=== PATIENT | female | born 2000 | race Caucasian/White ===

== ENCOUNTER → 2023-08-18 10:18 | Outpatient (REF) | payer BC, OTHER, SELFPAY | LOC: WDC 10:18 | PROVIDERS: ATTENDING PHYSICIAN Internal Medicine | DX: R22.31 Localized swelling, mass and lump, right upper limb (principal); N63.31 Unspecified lump in axillary tail of the right breast | CPT/HCPCS: 76642 ==

== ENCOUNTER 2024-06-12 07:35 | Emergency (ER) | payer BC, SELFPAY ==
[2024-06-12 07:43] VITALS: BP 141/88
[2024-06-12 08:06] LABS: % Basophils 0.4 % (0-2); % Eosinophils 0.4 % (0-6); % Immature Granulocytes 0.3 % (0-0.5); % Lymphocytes 4.8 % (20.5-51.1); % Monocytes 4.3 % (1.7-9.3); % Neutrophils 89.8 % (42.2-75.2); Absolute Basophils 0.1 10^3/uL (0-0.2); Absolute Lymphocytes 0.5 10^3/uL (1.2-3.4); Absolute Monocytes 0.5 10^3/uL (0.1-0.6); Absolute Neutrophils 10.1 10^3/uL (1.4-6.5); Hematocrit 35.6 % (37.0-47.0); Hemoglobin 11.8 g/dL (12.0-16.0); Mean Corp Hgb Conc. 33.1 g/dL (33.0-37.0); Mean Corpuscular Hgb 28.1 pg (27.0-31.0); Mean Corpuscular Volume 84.8 fL (81.0-99.0); Mean Platelet Volume 11.4 fL (7.4-10.4); Nucleated Red Blood Cells % 0 %; Platelet Count 216 10^3/uL (130-400); Red Cell Dist. Width 15.3 % (11.5-14.5); White Blood Cell Count 11.2 10^3/uL (4.8-10.8)
[2024-06-12 08:14] LABS: HCG, Serum Qualitative Screen Negative
[2024-06-12 08:17] LABS: ALT (SGPT) 27 U/L (0-35); AST (SGOT) 34 U/L (14-36); Albumin 4.6 g/dl (3.5-5.0); Alkaline Phosphatase 50 U/L (38-126); Blood Urea Nitrogen 11 mg/dl (7-17); Calcium 9.2 mg/dl (8.4-10.2); Carbon Dioxide 25 mmol/L (22-30); Chloride 103 mmol/L (98-107); Glucose 144 mg/dl (70-99); Potassium 3.8 mmol/L (3.5-5.1); Sodium 139 mmol/L (135-145); Total Bilirubin 1.1 mg/dl (0.2-1.3); eGFR > 60.00
[2024-06-12] MEDS: TORADOL 15 MG IV ×2 (10:23→19:03)
[2024-06-12] MEDS: ZOFRAN 4 MG IV ×2 (10:28→13:23)
[2024-06-12 10:30] VITALS: BMI 20.8
[2024-06-12 11:41] VITALS: BP 120/85
[2024-06-12] MEDS: NSS 1000 IV (12:00)
[2024-06-12 12:20] LABS: Urine Albumin 1+ (Neg - Trace); Urine Bilirubin Negative (Negative); Urine Character Clear (Clear); Urine Color Yellow; Urine Glucose 4+ (Negative); Urine Leukocyte Negative (Negative); Urine Nitrite Negative (Negative); Urine Occult Blood 2+ (Negative); Urine Specific Gravity 1.015 (<1.030); Urine Urobilinogen 1+ (Neg - 1+)
[2024-06-12 12:25] LABS: Urine Ketone 3+ (Negative)
[2024-06-12 12:40] LABS: Urine Mucus Many
[2024-06-12 12:41] LABS: Urine Amorphous Seen; Urine Squamous Cell >30 /LPF (Few); Urine Urothelial Cell 16-20 /LPF (FEW)
[2024-06-12 12:42] LABS: Urine Red Blood Cell 0-2 /HPF (0-2)
--- NOTE | 2024-06-12 12:50 | ED.GENMED ---
Addendum entered and electronically signed by Sankte Moulton MD 06/12/24 18:50:
Lipase normal, viral swabs normal. CT still pending but on clinical reassessment patient is actually requesting to leave. She does not wish to stay for CT scan and does not feel she needs to stay in hospital. She says that she thinks this is just
a virus and I tend to agree. I did explain my thought process and concerns that with the degree of pain she was reporting earlier she should be evaluated with a CT scan but she is not wish to stay for this at this point and is requesting to leave
the hospital. She does have decisional capacity. Reassuringly she has been in the emergency room for about 10 hours and has had reassuring vital signs and on clinical reassessment of her abdomen it is soft and nontender. Will discharge in keeping
with her wishes, she assured me that she will return if her symptoms are worsening.
Addendum entered and electronically signed by Sanket Moulton MD 06/12/24 15:15:
UPDATE (Sanket Moulton MD)
I have seen and evaluated the patient after signout and reviewed all labs and imaging.
Focused HPI: 23-year-old female with history of hypertension who presented to the emergency room with nausea, vomiting, diarrhea as well as some low back pain. She presented via EMS. She says these have been ongoing since last night and that she
was up all night vomiting. She says she has some mild aching in her abdomen but mainly pain in her low back. No fever reported. No urinary symptoms reported. Denies similar symptoms in the past.
Physical exam: Patient is lying in bed appears mildly uncomfortable holding emesis bag. Vital signs are all normal on my assessment. Abdomen soft and minimally tender epigastrium.
Medical Decision Makin-year-old female here with nausea, vomiting, diarrhea as well as low back pain. Symptoms suspected to be related to enteritis initially, labs sent off including a CBC which showed marginal leukocytosis at 11.2, CMP no
clinically significant abnormalities. Her hCG is negative. Her urinalysis was positive for ketones with some blood but no signs of acute infection. She feels symptoms are worsening despite treatment here in the emergency room with Tylenol,
Toradol, Zofran x 2, Reglan/Benadryl, fluids. Will add lipase with worsening back pain and nausea/vomiting. Will check CT of the abdomen pelvis. Swab for COVID and flu. Reassess after the above�anticipate admission if no improvement despite
multiple rounds of parenteral medications.
Original Note:
History of Present Illness
General
Chief Complaint: Abdominal Symptoms
Source: patient and ambulance crew
Exam Limitations: none
Time Seen by Provider: 06/12/24 10:05
Nursing documentation reviewed up to this point in time: agreed with
History of Present Illness
History of Present Illness:
23-year-old female presents emergency department due to nausea vomiting diarrhea and low back pain. She was vomiting, and called EMS. EMS gave 4 mg Zofran en route. This did help her nausea.
Past History
Past History
ED Past Medical History: HTN, Psychiatric (Anxiety/Depression) and Other (Chronic kidney disease)
ED Past Surgical History: Tonsilectomy (And adenoids) and Other (Tear duct surgery)
Social History
Tobacco: Smoker
Alcohol: None
Drug: None
Review of Systems
Review of Systems
Allergies reviewed?: Yes
All Other Systems: Not applicable
Constitutional: Reports no symptoms
EENT: Reports no symptoms
Respiratory: Reports no symptoms
Cardiac: Reports no symptoms
ABD/GI: Reports nausea and vomiting
: Reports no symptoms
Musculoskeletal: Reports back pain
Skin: Reports no symptoms
Neurological: Reports no symptoms
Endocrine: Reports no symptoms
Hematologic/Lymphatic: Reports no symptoms
Psychiatric: Reports no symptoms
Phy Exam
Physical Exam
Physical Exam:
Physical Exam
General: no apparent distress, not acutely ill
Neck: supple. no meningeal signs. normal posterior pharynx
Heart: s1/s2 regular rate and rhythm, no murmur. equal radial
pulses.
HEENT: Pupils equal round reactive to light, EOMI
Lungs: no acute respiratory distress. clear bilaterally
Abdomen: normal bowel sounds. not tender. no CVAT
back: mid left paraspinal muscle tenderness
Neuro: alert and oriented. no focal neurological deficits cranial nerves II through XII intact
Skin: no rash
Psychiatric: well kept. interactive and cooperative
Extremities: no edema. no calf tenderness. negative homans. good distal pulses
Course
Orders/Labs/Results
Orders:
Orders
06/12/24 07:49
Test Result ONCE
06/12/24 07:53
Complete Blood Count/With Diff Urgent
Comprehensive Metabolic Panel Urgent
HCG, Serum Qualitative Screen Urgent
06/12/24 10:17
Ketorolac [Toradol] 15 mg IV NOW STA
Ondansetron Injectable [Zofran] 4 mg IV NOW STA
06/12/24 11:16
Urinalysis Reflex To Culture Urgent
Date Specimen was Collected: 06/12/24
Time Specimen was Collected: 10:45
Urine Microscopic Reflex Cult Urgent
06/12/24 11:34
0.9% Sodium Chloride 1000 ml [Nss] 1,000 ml IV BOLUS
06/12/24 13:11
Acetaminophen [Tylenol] 650 mg PO NOW STA
Ondansetron Injectable [Zofran] 4 mg IV NOW STA
Abnormal Lab Results
06/12/24 06/12/24
07:53 11:16
WBC 11.2 H 10^3/uL
(4.8-10.8)
Hgb 11.8 L g/dL
(12.0-16.0)
Hct 35.6 L %
(37.0-47.0)
RDW 15.3 H %
(11.5-14.5)
MPV 11.4 H fL
(7.4-10.4)
Absolute Neuts (auto) 10.1 H 10^3/uL
(1.4-6.5)
Absolute Lymphs (auto) 0.5 L 10^3/uL
(1.2-3.4)
Neutrophils % 89.8 H %
(42.2-75.2)
Lymphocytes % 4.8 L %
(20.5-51.1)
Glucose 144 H mg/dl
(70-99)
Urine Ketones 3+ A
(Negative)
Ur Occult Blood Reflex 2+ A
(Negative)
Urine Glucose 4+ A
(Negative)
Urine Albumin (Reflex) 1+ A
(Neg - Trace)
06/12/24 07:53
06/12/24 07:53
Vital Signs
Initial and Last Documented VS:
Initial Vital Signs
Temp Pulse Resp BP Pulse Ox
99.3 F 81 18 141/88 98
06/12/24 07:43 06/12/24 07:43 06/12/24 07:43 06/12/24 07:43 06/12/24 07:43
Last Documented Vital Signs
Temp Pulse Resp BP Pulse Ox
98.8 F 78 18 120/85 95
06/12/24 11:41 06/12/24 11:41 06/12/24 11:41 06/12/24 11:41 06/12/24 11:41
MDM/Problems Addressed
Differential Diagnosis Includes:
UTI, kidney stone
MDM/Problems Addressed:
23-year-old female with nausea vomiting and diarrhea. Abdomen exam benign, no CVA tenderness. Tolerating p.o. Will treat with Zofran.
*Pulse Oximetry
Patient hypoxic: no
*Critical Care Note
Total Time (30-74mins, 75-104mins- exclusive of procedures): Not Applicable
Patient Management
Social determinants of health affecting care: Living situation and Strong social support
Escalation/DeEscalation of care consider admission/obs:
admit not indicated
ED Attending Note
-
Portions of this chart may have been created with voice recognition software.� Occasional wrong word or��sound alike� substitutions may have occurred due to the inherent limitations of voice recognition software.
Discharge Plan
Departure
Patient Disposition: Home (Routine Discharge)
Date of Disposition: 06/12/24
Time of Disposition: 12:59
Patient with high blood pressure during this ER visit?: No
Condition: Good
Discharge Problem:
Nausea vomiting and diarrhea
Instructions: Diarrhea in teens and adults, Nausea and Vomiting, Adult (DC)
Prescriptions:
New
ondansetron 4 mg tablet,disintegrating
4 mg PO Q8H PRN (Reason: nausea and vomiting) 4 Days Qty: 7 0RF
No Action
PreNata 1 EACH tablet,chewable
1 ea PO DAILY
Ativan
Lexapro
ascorbic acid (vitamin C) [Vitamin C] 500 mg Tablet
500 mg PO BID Qty: 0 0RF
ferrous sulfate [FeroSul] 325 mg (65 mg iron) Tablet
325 mg PO BID Qty: 0 0RF
hydrocodone-acetaminophen 5-325 mg tablet
1 tab PO Q8H PRN (Reason: Pain) Qty: 14 0RF
Referrals:
NONE,* [Family Provider] -
Activity Restrictions/Additional Instructions:
Follow up with primary care in 3-5 days. Return for any concerns.
Interventions
Interventions:
*Risk Screen - Suicide Last Done: 06/12/24 07:43
*General Assessment Last Done: 06/12/24 07:43
*Neglect/Abuse Screening Last Done: 06/12/24 07:43
ED- Fall Risk Assessment Last Done: 06/12/24 10:29
*ED COVID-19 Vaccine History Last Done: 06/12/24 10:29
BM-Kykfuz-Traljlbgle Assessment Last Done: 06/12/24 10:29
Discharge Date and Time
Print Language: CZECH
[2024-06-12] MEDS: TYLENOL 650 MG PO (13:23)
[2024-06-12] MEDS: REGLAN 10 MG IV (14:06)
[2024-06-12] MEDS: BENADRYL 25 MG IV (14:08)
[2024-06-12 15:42] LABS: Lipase 75 U/L (23-300)
[2024-06-12 16:06] VITALS: BP 121/73
[2024-06-12] MEDS: MORPHINE SULFATE 4 MG IV (16:06)
[2024-06-12 17:21] LABS: COVID-19 Antigen Negative (Negative)
[2024-06-12 19:08] VITALS: BP 126/76
== END 2024-06-12 19:09 | disposition home or self-care (01) ==
LOC: EMR 07:35
PROVIDERS: Emergency Medicine; EMERGENCY PHYSICIAN Emergency Medicine
DX: R11.2 Nausea with vomiting, unspecified (principal); R19.7 Diarrhea, unspecified; Z11.52 Encounter for screening for COVID-19; F17.200 Nicotine dependence, unspecified, uncomplicated
CPT/HCPCS: 99284; 96374; 96375 ×4; 96361; 96376; 80053; 81003; 81015; 83690; 84703; 85025; 87502; 87811

== ENCOUNTER 2024-06-28 23:39 | Emergency (ER) | payer BC, SELFPAY ==
[2024-06-28 23:56] VITALS: BP 139/95
[2024-06-29 00:28] LABS: COVID-19 Antigen Negative (Negative)
[2024-06-29 01:33] VITALS: BMI 21.5
[2024-06-29 01:44] LABS: HCG, Urine Qualitative Screen Negative
[2024-06-29] MEDS: ATIVAN 1 MG PO (01:48)
--- NOTE | 2024-06-29 01:52 | ED.GENMED ---
History of Present Illness
General
Chief Complaint: Cold/Flu/URI Symptoms
Source: patient
Exam Limitations: none
Time Seen by Provider: 06/29/24 01:16
Nursing documentation reviewed up to this point in time: agreed with
History of Present Illness
History of Present Illness:
23-year-old female past medical history of high blood pressure previous anemia kidney issue as a child though she is unsure what specifically previous blood clotting issue though she is unsure what specifically in the past presenting to the
emergency department with concerns of upper respiratory symptoms cough body aches headache over the past 2 to 3 weeks. Also has had some intermittent vomiting. Seem to have some worsening cough and some chest achiness today as well as some
shortness of breath. She also feels very anxious and did not take her typical Ativan today.
Past History
Past History
ED Past Medical History: HTN, Psychiatric (Anxiety/Depression) and Other (Chronic kidney disease)
ED Past Surgical History: Tonsilectomy (And adenoids) and Other (Tear duct surgery)
Social History
Tobacco: Smoker
Alcohol: None
Drug: None
Review of Systems
Review of Systems
Allergies reviewed?: Yes
All Other Systems: ROS reviewed and negative except as documented in HPI and ROS
Phy Exam
Physical Exam
Physical Exam:
GENERAL: Alert , in no apparent distress
EYE: pupils equal and reactive
NECK: Supple, no significant adenopathy.
ENT: o/p clr, mmm.
CARDIAC: Tachycardic
LUNGS: Clear breath sounds bilaterally, no acute respiratory distress, no wheezes/rales/rhonchi
ABDOMEN: Soft, without focal tenderness, no r/g, no cvat
NEUROLOGICAL: Alert and oriented, no focal neuro deficits
SKIN: Warm and dry, skin intact.
MUSCULOSKELETAL: No edema, well perfused.
PSYCH: Normal and appropriate interaction.
Course
Orders/Labs/Results
Orders:
Orders
06/29/24 00:01
CXR2 [CR Chest - 2 Views ] Urgent
Comment:
Reason For Exam: productive cough x 2 wk
06/29/24 00:04
COVID-19 Antigen Urgent
Source: Nasal Swab
Influenza A+B Rapid Molecular Urgent
MARLEN Source: Nasal Swab
Specimen Description:
06/29/24 01:16
EKG [Electrocardiogram (*1)] Urgent
Reason for Study: Chest Pain
EKG- Treatment ONCE
Test Result ONCE
06/29/24 01:35
Fentanyl, Urine Urgent
HCG, Urine Qualitative Screen Urgent
Date Specimen was Collected: 06/29/24
Time Specimen was Collected: 01:17
Urinalysis Reflex To Culture Urgent
Date Specimen was Collected: 06/29/24
Time Specimen was Collected: 01:17
Urine Drug Abuse Screen Urgent
Date Specimen was Collected: 06/29/24
Time Specimen was Collected: 01:17
Urine Microscopic Reflex Cult Urgent
Urine Culture Urgent
MARLEN Source: U
Specimen Description:
Date Specimen was Collected: 06/29/24
Time Specimen was Collected: 01:17
06/29/24 01:45
Lorazepam [Ativan] 1 mg PO NOW STA
06/29/24 01:55
CBC/With Diff [Complete Blood Count/With Diff] Urgent
CMP [Comprehensive Metabolic Panel] Urgent
Troponin I Urgent
06/29/24 02:21
Cardiac Monitoring- Treatment ONCE
06/29/24 02:23
Add On- LAB Urgent
Comments:: add on
Tests Added?: UDS
06/29/24 02:29
D-Dimer Urgent
06/29/24 02:30
Ketorolac [Toradol] 15 mg IV NOW STA
06/29/24 02:31
Ketorolac [Toradol] 15 mg .ROUTE .STK-MED ONE
06/29/24 03:17
Acetaminophen [Tylenol] 650 mg PO NOW STA
06/29/24 03:35
Dexamethasone Sod Phosphate [Decadron] 10 mg IV NOW STA
Metoclopramide [Reglan] 10 mg PO NOW STA
Abnormal Lab Results
06/29/24 06/29/24
01:35 01:55
RBC 4.13 L 10^6/uL
(4.20-5.40)
Hgb 11.4 L g/dL
(12.0-16.0)
Hct 35.5 L %
(37.0-47.0)
MCHC 32.1 L g/dL
(33.0-37.0)
RDW 14.9 H %
(11.5-14.5)
Absolute Monos (auto) 0.7 H 10^3/uL
(0.1-0.6)
Glucose 100 H mg/dl
(70-99)
Ur Occult Blood Reflex 1+ A
(Negative)
Urine Urobilinogen 2+ A
(Neg - 1+)
Urine RBC 3-6 A /HPF
(0-2)
Urine WBC (Reflex) 11-15 A /HPF
(0-5)
Urine Bacteria (Reflex) Moderate A
(Negative)
Urine Albumin (Reflex) 1+ A
(Neg - Trace)
U Benzodiazepines Scrn Positive H
(Negative)
Urine Cocaine Screen Positive H
(Negative)
06/29/24 01:55
06/29/24 01:55
Vital Signs
Initial and Last Documented VS:
Initial Vital Signs
Pulse Resp BP Pulse Ox
107 18 139/95 100
06/28/24 23:56 06/28/24 23:56 06/28/24 23:56 06/28/24 23:56
Last Documented Vital Signs
Temp Pulse Resp BP Pulse Ox
98.2 F 93 21 117/86 97
06/29/24 03:31 06/29/24 03:30 06/29/24 03:30 06/29/24 03:00 06/29/24 03:30
MDM/Problems Addressed
MDM/Problems Addressed:
23-year-old female presenting with multiple concerns ongoing symptoms for multiple weeks including cough congestion body aches. Also concerned that she is having some chest pain today as well as shortness of breath. On arrival she is tachycardic
but otherwise pulse ox is normal respiratory rate normal blood pressure normal range lungs are clear heart sounds normal. Patient is significantly tachycardic with some nonspecific EKG changes. Considering this possibility myocarditis was
considered. Plan for labs troponin as well as dimer concerning she does have a history of possible blood clot though she is not able to elaborate with this.
ED Attending Note
-
Portions of this chart may have been created with voice recognition software.� Occasional wrong word or��sound alike� substitutions may have occurred due to the inherent limitations of voice recognition software.
Discharge Plan
Departure
Patient Disposition: Home (Routine Discharge)
Date of Disposition: 06/29/24
Time of Disposition: 03:36
Patient with high blood pressure during this ER visit?: No
Condition: Good
Covid-19: Not Applicable
Discharge Problem:
Headache, Chest congestion
Instructions: Acute Bronchitis, Adult (DC)
Prescriptions:
New
methylprednisolone [Medrol (Jae)] 4 mg tablets,dose pack
See Rx Instructions .ROUTE .COMPLEX Qty: 21 0RF
Rx Instructions:
for 6 days
No Action
PreNata 1 EACH tablet,chewable
1 ea PO DAILY
Ativan
Lexapro
ascorbic acid (vitamin C) [Vitamin C] 500 mg Tablet
500 mg PO BID Qty: 0 0RF
ferrous sulfate [FeroSul] 325 mg (65 mg iron) Tablet
325 mg PO BID Qty: 0 0RF
hydrocodone-acetaminophen 5-325 mg tablet
1 tab PO Q8H PRN (Reason: Pain) Qty: 14 0RF
ondansetron 4 mg tablet,disintegrating
4 mg PO Q8H PRN (Reason: nausea and vomiting) 4 Days Qty: 7 0RF
Referrals:
NONE,* [Family Provider] -
Activity Restrictions/Additional Instructions:
You came to the emergency department with concerns of multiple symptoms. Here you have a reassuring assessment. Please take the steroid to help with congestion. Otherwise you can continue taking Motrin Tylenol and drink plenty of fluids. Return
for any worsening, new or concerning symptoms.
Interventions
Interventions:
*Risk Screen - Suicide Last Done: 06/28/24 23:56
*Neglect/Abuse Screening Last Done: 06/29/24 01:31
ED- Fall Risk Assessment Last Done: 06/29/24 01:31
*ED COVID-19 Vaccine History Last Done: 06/29/24 01:31
ED- Pulmonary Assessment Last Done: 06/29/24 01:31
Discharge Date and Time
Print Language: SPANISH
[2024-06-29 01:53] LABS: Urine Albumin 1+ (Neg - Trace); Urine Bilirubin Negative (Negative); Urine Character Slightly Cloudy (Clear); Urine Color Yellow; Urine Glucose Negative (Negative); Urine Ketone Negative (Negative); Urine Leukocyte Negative (Negative); Urine Nitrite Negative (Negative); Urine Occult Blood 1+ (Negative); Urine Urobilinogen 2+ (Neg - 1+)
[2024-06-29 02:06] LABS: % Basophils 0.7 % (0-2); % Eosinophils 1.1 % (0-6); % Immature Granulocytes 0.2 % (0-0.5); % Lymphocytes 26.6 % (20.5-51.1); % Neutrophils 62.4 % (42.2-75.2); Absolute Basophils 0.1 10^3/uL (0-0.2); Absolute Eosinophils 0.1 10^3/uL (0-0.7); Absolute Lymphocytes 2.2 10^3/uL (1.2-3.4); Absolute Monocytes 0.7 10^3/uL (0.1-0.6); Hematocrit 35.5 % (37.0-47.0); Hemoglobin 11.4 g/dL (12.0-16.0); Mean Corp Hgb Conc. 32.1 g/dL (33.0-37.0); Mean Corpuscular Hgb 27.6 pg (27.0-31.0); Mean Platelet Volume 10.2 fL (7.4-10.4); Nucleated Red Blood Cells % 0 %; Platelet Count 372 10^3/uL (130-400); Red Blood Cell Count 4.13 10^6/uL (4.20-5.40); Red Cell Dist. Width 14.9 % (11.5-14.5); White Blood Cell Count 8.1 10^3/uL (4.8-10.8)
[2024-06-29 02:18] LABS: Urine Squamous Cell >30 /LPF (Few)
[2024-06-29 02:20] LABS: ALT (SGPT) 12 U/L (0-35); AST (SGOT) 19 U/L (14-36); Albumin 4.1 g/dl (3.5-5.0); Alkaline Phosphatase 47 U/L (38-126); Blood Urea Nitrogen 16 mg/dl (7-17); Calcium 9.5 mg/dl (8.4-10.2); Carbon Dioxide 27 mmol/L (22-30); Chloride 105 mmol/L (98-107); Estimated Creatinine Clearance 108 ml/min; Glucose 100 mg/dl (70-99); Potassium 3.9 mmol/L (3.5-5.1); Sodium 140 mmol/L (135-145); Total Bilirubin 0.3 mg/dl (0.2-1.3); Total Protein 6.9 g/dl (6.3-8.2); eGFR > 60.00
[2024-06-29 02:22] LABS: Urine Bacteria Moderate (Negative); Urine Mucus Moderate
[2024-06-29 02:29] LABS: Troponin I < 0.012 ng/ml
[2024-06-29] MEDS: TORADOL 15 MG IV ×2 (02:32→04:11)
[2024-06-29 03:00] VITALS: BP 117/86
[2024-06-29 03:10] LABS: Amphetamines Negative (Negative); Barbiturates Negative (Negative); Benzodiazepines Positive (Negative); Buprenorphine Negative (Negative); Cocaine Positive (Negative); Marijuana Negative (Negative); Methadone Negative (Negative); Methamphetamines Negative (Negative); Opiates Negative (Negative); Phencyclidine Negative (Negative); Tricyclic Antidepressants Negative (Negative)
[2024-06-29 03:22] LABS: Fentanyl, Urine Negative (Negative)
[2024-06-29 03:29] LABS: D-Dimer < 0.27 ug/mlFEU (0.00-0.50)
[2024-06-29] MEDS: DECADRON 10 MG IV (03:59)
[2024-06-29] MEDS: REGLAN 10 MG PO (04:00)
== END 2024-06-29 04:35 | disposition home or self-care (01) ==
LOC: EMR 23:39
PROVIDERS: Physician Assistant; Student in an Organized Health Care Education/Training Program; EMERGENCY PHYSICIAN Emergency Medicine
DX: R51.9 Headache, unspecified (principal); R09.89 Other specified symptoms and signs involving the circulatory and respiratory systems; R05.9 Cough, unspecified; D64.9 Anemia, unspecified; I12.9 Hypertensive chronic kidney disease with stage 1 through stage 4 chronic kidney disease, or unspecified chronic kidney disease; N18.9 Chronic kidney disease, unspecified; F41.8 Other specified anxiety disorders; F17.200 Nicotine dependence, unspecified, uncomplicated
CPT/HCPCS: 99283; 96374; 96375; 96376; 71046; 80053; 80306; 80307; 81003; 81015; 81025; 84484; 85025; 85379; 87086; 87502; 87811; 93005

== ENCOUNTER 2024-08-07 18:44 | Emergency (ER) | payer BC, SELFPAY ==
[2024-08-07 18:48] VITALS: BP 133/79
[2024-08-07 19:17] LABS: % Basophils 0.8 % (0-2); % Eosinophils 2.4 % (0-6); % Immature Granulocytes 0.3 % (0-0.5); % Lymphocytes 30.3 % (20.5-51.1); % Monocytes 7.2 % (1.7-9.3); Absolute Basophils 0.1 10^3/uL (0-0.2); Absolute Eosinophils 0.2 10^3/uL (0-0.7); Absolute Lymphocytes 2.1 10^3/uL (1.2-3.4); Absolute Monocytes 0.5 10^3/uL (0.1-0.6); Absolute Neutrophils 4.2 10^3/uL (1.4-6.5); Hematocrit 35.5 % (37.0-47.0); Hemoglobin 11.5 g/dL (12.0-16.0); Mean Corp Hgb Conc. 32.4 g/dL (33.0-37.0); Mean Corpuscular Hgb 28.2 pg (27.0-31.0); Mean Platelet Volume 10.4 fL (7.4-10.4); Nucleated Red Blood Cells % 0 %; Platelet Count 319 10^3/uL (130-400); Red Blood Cell Count 4.08 10^6/uL (4.20-5.40); Red Cell Dist. Width 14.6 % (11.5-14.5); White Blood Cell Count 7.1 10^3/uL (4.8-10.8)
[2024-08-07 19:31] LABS: HCG, Serum Qualitative Screen Negative
[2024-08-07 19:33] LABS: ALT (SGPT) 11 U/L (0-35); AST (SGOT) 18 U/L (14-36); Alkaline Phosphatase 41 U/L (38-126); Blood Urea Nitrogen 13 mg/dl (7-17); Calcium 9.6 mg/dl (8.4-10.2); Carbon Dioxide 26 mmol/L (22-30); Glucose 97 mg/dl (70-99); Total Bilirubin 0.4 mg/dl (0.2-1.3); Total Protein 6.9 g/dl (6.3-8.2); eGFR > 60.00
[2024-08-07 20:39] LABS: Chloride 107 mmol/L (98-107); Potassium 4.3 mmol/L (3.5-5.1); Sodium 141 mmol/L (135-145)
[2024-08-07 23:24] VITALS: BP 113/81; BMI 20.4
--- NOTE | 2024-08-07 23:31 | ED.GENMED ---
History of Present Illness
General
Chief Complaint: Vaginal Bleeding
Source: patient and previous hospital records
Exam Limitations: none
Time Seen by Provider: 08/07/24 23:25
Nursing documentation reviewed up to this point in time: agreed with except (Questionable history of kidney disease as a child. No history of chronic kidney disease nor chronic renal failure)
History of Present Illness
History of Present Illness:
This is a 24-year-old female with history of hypertension, anxiety, questionable history of kidney disease as a child.
She presents with vaginal bleeding that began yesterday, heavier today and states she passed 1 small clot earlier today. She has had intermittent mild suprapubic cramping.
Prior to onset of bleeding yesterday she is unsure as to the timing of her last menstrual period. She admits that she does not keep track of her menses but believes that these are generally monthly.
She denies dizziness nor lightheadedness, no fever no chills, no chest pain or coughing or shortness of breath.
She denies risk of .
Tonight she noted very mild dysuria that began around 5 PM but denies urinary frequency nor hematuria, denies back or flank pain.
Past History
Past History
ED Past Medical History: HTN, Psychiatric (Anxiety/Depression) and Other (Kidney issue as a child has since resolved.)
ED Past Surgical History: Tonsilectomy (And adenoids) and Other (Tear duct surgery)
Social History
Tobacco: Smoker
Alcohol: None
Drug: None
Personal: Single
Living: with family
Employment: Not employed
Family History
Family History: Other (Noncontributory)
Phy Exam
Physical Exam
Physical Exam:
GENERAL: 24-year-old female appears her stated age, awake and alert, pleasant, appears in no acute distress.
EYE: anicteric
NECK: Supple, nontender, no meningismus, no significant adenopathy.
ENT: oral mucosa is moist. No rhinorrhea.
CARDIAC: Regular rate and rhythm. no murmur.
LUNGS: Clear breath sounds bilaterally, no acute respiratory distress, no wheezes/rales/rhonchi
ABDOMEN: Soft, nondistended, without focal tenderness, no r/g, no cvat. No palpable masses. Normoactive BS.
NEUROLOGICAL: Alert and oriented x3, no focal neuro deficits. Gait is saucedo and steady.
SKIN: Warm and dry, normal color, skin intact. No rash.
MUSCULOSKELETAL: No C/C/E. peripheral pulses are full and equal b/l. No palpable tenderness.
PSYCH: Normal and appropriate interaction.
Course
Orders/Labs/Results
Orders:
Orders
08/07/24 18:51
Test Result ONCE
08/07/24 18:58
Type+Screen Urgent
Complete Blood Count/With Diff Urgent
Comprehensive Metabolic Panel Urgent
HCG, Serum Qualitative Screen Urgent
08/07/24 23:52
Urinalysis Reflex To Culture Urgent
Date Specimen was Collected: 08/07/24
Time Specimen was Collected: 23:51
Urine Microscopic Reflex Cult Urgent
Urine Culture Urgent
MARLEN Source: U
Specimen Description:
Date Specimen was Collected: 08/07/24
Time Specimen was Collected: 23:51
08/08/24 01:52
Fosfomycin [Monurol] 3 gm PO ONCE ONE
Abnormal Lab Results
08/07/24 08/07/24
18:58 23:52
RBC 4.08 L 10^6/uL
(4.20-5.40)
Hgb 11.5 L g/dL
(12.0-16.0)
Hct 35.5 L %
(37.0-47.0)
MCHC 32.4 L g/dL
(33.0-37.0)
RDW 14.6 H %
(11.5-14.5)
Urine Ketones 1+ A
(Negative)
Ur Occult Blood Reflex 4+ A
(Negative)
Leukocyte Esterase Rfl 3+ A
(Negative)
Urine RBC 60-70 A /HPF
(0-2)
Urine WBC (Reflex) >100 A /HPF
(0-5)
Urine Bacteria (Reflex) Moderate A
(Negative)
Urine Glucose 3+ A
(Negative)
Urine Albumin (Reflex) 2+ A
(Neg - Trace)
08/07/24 18:58
08/07/24 18:58
Vital Signs
Initial and Last Documented VS:
Initial Vital Signs
Temp Pulse Resp BP Pulse Ox
98.7 F 77 18 133/79 99
08/07/24 18:48 08/07/24 18:48 08/07/24 18:48 08/07/24 18:48 08/07/24 18:48
Last Documented Vital Signs
Temp Pulse Resp BP Pulse Ox
98.0 F 63 16 113/81 100
08/07/24 23:24 08/07/24 23:24 08/07/24 23:24 08/07/24 23:24 08/07/24 23:24
MDM/Problems Addressed
Differential Diagnosis Includes:
Concern for menometrorrhagia, dysmenorrhea, UTI.
Labs thus far reassuring with hemoglobin of 11.5, trending up from 1 month ago.
Chemistries are unremarkable and hCG is negative.
I suspect patient's vaginal bleeding is menses related.
No evidence of significant vaginal bleeding on exam.
Vital signs within normal limits/hemodynamically stable.
Will check urinalysis assess for potential UTI.
At this point no indication for imaging.
Chronic conditions affecting care: Psychiatric illness
*Pulse Oximetry
Patient hypoxic: no
*Critical Care Note
Total Time (30-74mins, 75-104mins- exclusive of procedures): Not Applicable
Update Note
Update Note:
01:50
Patient has been sleeping soundly.
No return of heavy vaginal bleeding. She remains hemodynamically stable.
Urinalysis suspicious for UTI showing greater than 100 WBCs, moderate bacteria. It is a somewhat contaminated specimen with 21-25 squamous epithelial cells.
She remains afebrile, no flank pain and abdomen is soft without appreciable tenderness.
Will treat UTI with a one-time dose of Monurol and will await urine culture.
Discussed importance of staying well-hydrated on a daily basis.
Prompt follow-up with PCP for recheck.
ED Attending Note
-
Portions of this chart may have been created with voice recognition software.� Occasional wrong word or��sound alike� substitutions may have occurred due to the inherent limitations of voice recognition software.
Discharge Plan
Departure
Patient Disposition: Home (Routine Discharge)
Date of Disposition: 08/08/24
Time of Disposition: 01:58
Patient with high blood pressure during this ER visit?: No
Condition: Good
Discharge Problem:
Menorrhagia, UTI (urinary tract infection)
Instructions: Urinary tract infections in adults, Heavy Periods (DC)
Prescriptions:
No Action
PreNata 1 EACH tablet,chewable
1 ea PO DAILY
Ativan
Lexapro
ascorbic acid (vitamin C) [Vitamin C] 500 mg Tablet
500 mg PO BID Qty: 0 0RF
ferrous sulfate [FeroSul] 325 mg (65 mg iron) Tablet
325 mg PO BID Qty: 0 0RF
hydrocodone-acetaminophen 5-325 mg tablet
1 tab PO Q8H PRN (Reason: Pain) Qty: 14 0RF
ondansetron 4 mg tablet,disintegrating
4 mg PO Q8H PRN (Reason: nausea and vomiting) 4 Days Qty: 7 0RF
methylprednisolone [Medrol (Jae)] 4 mg tablets,dose pack
See Rx Instructions .ROUTE .COMPLEX Qty: 21 0RF
Rx Instructions:
for 6 days
Referrals:
NONE,* [Family Provider] - Call in 1-3 days for appt
Interventions
Interventions:
*Risk Screen - Suicide Last Done: 08/07/24 18:48
*General Assessment Last Done: 08/07/24 18:48
*Neglect/Abuse Screening Last Done: 08/07/24 18:48
*ED- Fall Risk Assessment Last Done: 08/07/24 23:24
*ED COVID-19 Vaccine History Last Done: 08/07/24 18:48
ED-Female Genitourinary Assessment Last Done: 08/07/24 23:24
Discharge Date and Time
Print Language: HAITIAN
[2024-08-08 00:05] LABS: Urine Albumin 2+ (Neg - Trace); Urine Bilirubin Negative (Negative); Urine Character Slightly Cloudy (Clear); Urine Color Yellow; Urine Glucose 3+ (Negative); Urine Ketone 1+ (Negative); Urine Leukocyte 3+ (Negative); Urine Nitrite Negative (Negative); Urine Occult Blood 4+ (Negative); Urine Specific Gravity 1.025 (<1.030); Urine Urobilinogen Negative (Neg - 1+)
[2024-08-08 01:35] LABS: Urine Squamous Cell 21-25 /LPF (Few)
[2024-08-08 01:37] LABS: Urine Bacteria Moderate (Negative); Urine Mucus Moderate; Urine Red Blood Cell 60-70 /HPF (0-2); Urine White Cell >100 /HPF (0-5)
[2024-08-08] MEDS: MONUROL 3 GM PO (02:06)
[2024-08-08 02:20] VITALS: BP 120/76
== END 2024-08-08 02:20 | disposition home or self-care (01) ==
LOC: EMR 18:44
PROVIDERS: Student in an Organized Health Care Education/Training Program; EMERGENCY PHYSICIAN Emergency Medicine
DX: N92.0 Excessive and frequent menstruation with regular cycle (principal); N39.0 Urinary tract infection, site not specified; I10 Essential (primary) hypertension; F41.9 Anxiety disorder, unspecified; F17.200 Nicotine dependence, unspecified, uncomplicated
CPT/HCPCS: 99283; 80053; 81003; 81015; 84703; 85025; 86850; 86900; 86901; 87086

== ENCOUNTER 2024-11-23 04:23 | Observation (INO) | payer OTHER, SELFPAY ==
[2024-11-22 23:35] VITALS: BP 108/66
[2024-11-22 23:45] VITALS: BP 108/66
[2024-11-22 23:47] VITALS: BP 101/80
[2024-11-22 23:54] LABS: Hematocrit 22.5 % (37.0-47.0); Hemoglobin 7.6 g/dL (12.0-16.0); Mean Corp Hgb Conc. 33.8 g/dL (33.0-37.0); Mean Corpuscular Volume 81.5 fL (81.0-99.0); Nucleated Red Blood Cells % 0 %; Platelet Count 150 10^3/uL (130-400); Red Cell Dist. Width 14.7 % (11.5-14.5)
[2024-11-22] MEDS: NSS 1000 IV (23:55)
[2024-11-23] VITALS (19 sets, daily range): BP systolic 98–135; BP diastolic 63–94; BMI 22.6; BMI 22.9
[2024-11-23 00:19] LABS: ALT (SGPT) 10 U/L (0-35); AST (SGOT) 23 U/L (14-36); Albumin 3.7 g/dl (3.5-5.0); Alkaline Phosphatase 31 U/L (38-126); Blood Urea Nitrogen 18 mg/dl (7-17); Calcium 9.0 mg/dl (8.4-10.2); Carbon Dioxide 20 mmol/L (22-30); Chloride 107 mmol/L (98-107); Estimated Creatinine Clearance 92 ml/min; Glucose 144 mg/dl (70-99); Potassium 4.0 mmol/L (3.5-5.1); Sodium 134 mmol/L (135-145); Total Protein 6.3 g/dl (6.3-8.2); eGFR > 60.00
[2024-11-23] MEDS: ZOFRAN 4 MG IV ×2 (00:24→00:50)
[2024-11-23] MEDS: MORPHINE SULFATE 4 MG IV (00:29)
--- NOTE | 2024-11-23 00:33 | ED.GENMED ---
History of Present Illness
General
Chief Complaint: Vaginal Bleeding
Source: patient and records
Exam Limitations: none
Time Seen by Provider: 11/23/24 00:17
Nursing documentation reviewed up to this point in time: agreed with
History of Present Illness
History of Present Illness:
24-year-old female with history as noted presents to the emergency room for evaluation of severe abdominal pain and vaginal bleeding. Patient reports that she had an elective surgical today at [facility] in [facility]
[place]. She reports that shortly after the surgery she started to have lower abdominal pain and she has had worsening abdominal pain to the point of severe pain. She said she started to have heavy vaginal bleeding and in the hour before calling
EMS soaked through 4 pads. She says she feels very lightheaded and is having nausea. No vomiting. Came to the ER via EMS for assessment. She does report similar heavy bleeding after previous surgical in 2021 requiring blood transfusion.
Patient reports that she was approximately 12 weeks prior to surgical today, last menstrual period 09/01/2024.
Past History
Past History
ED Past Medical History: HTN, Psychiatric (Anxiety/Depression) and Other (Kidney issue as a child has since resolved.)
ED Past Surgical History: Tonsilectomy (And adenoids) and Other (Tear duct surgery)
Social History
Tobacco: Smoker
Alcohol: None
Drug: None
Personal: Single
Living: with family
Employment: Not employed
Family History
Family History: Other (Noncontributory)
Review of Systems
Review of Systems
All Other Systems: ROS reviewed and negative except as documented in HPI and ROS
Respiratory: Denies trouble breathing
Cardiac: Denies chest pain
ABD/GI: Reports abdominal pain and nausea; Denies vomiting
: Reports bleeding
Neurological: Reports dizzy; Denies headache
Phy Exam
Physical Exam
Physical Exam:
General: Awake, alert; toxic appearing
Head: Normocephalic, atraumatic
Eyes: Conjunctiva normal, EOMI
Throat: Airway intact
Neck: Trachea midline, supple without meningismus
Lungs: Clear to auscultation bilaterally, no wheezing, rales, rhonchi
Heart: Regular rate and rhythm, no murmurs, gallops, or rubs
Abd: Soft, firm and severely tender in the lower abdomen
Neuro: No gross deficits
Extremities: Somewhat cool to the touch, no edema, good pulses throughout
Scores
Heart Failure Risk
Heart Failure Risk Score: Not Applicable
Heart Score for Chest Pain Patients
STEMI patient?: Not applicable
Withdrawal Assessment of Alcohol
Withdrawal Assessment Completed?: Not applicable
Course
Orders/Labs/Results
Orders:
Orders
11/22/24 23:46
Type And Crossmatch [Type+Screen] Urgent
Beta HCG Quantitative Urgent
Is this a screen?: No
Complete Blood Count/With Diff Urgent
Comprehensive Metabolic Panel Urgent
11/22/24 23:55
0.9% Sodium Chloride 1000 ml [Nss] 1,000 ml IV BOLUS
11/23/24 00:18
* Blood Bank Products Urgent
Blood Bank Products: *Packed RBC Leuko(PRBC's)
Quantity: 2
Transfuse Today: Yes
Reason: Bleeding
11/23/24 00:19
CT Abd/pelvis W Iv Cont Urgent
Comment:
Reason For Exam: severe abd pain s/p surgical , vag bleedin
Morphine Sulfate 4 mg IV NOW STA
Ondansetron Injectable [Zofran] 4 mg IV NOW STA
11/23/24 00:39
US Pelvis Only (non-obstetric) Urgent
Reason For Exam: abdominal pain
11/23/24 00:41
HYDROmorphone [Dilaudid] 1 mg IV NOW STA
Ondansetron Injectable [Zofran] 4 mg IV NOW STA
11/23/24 00:42
Electrocardiogram (*1) Urgent
Reason for Study: QTc Monitoring
MARKETING INTELLIGENCE ANALYST CONSULT Urgent
Consulting Provider: Lily Kowalski
Was physician already notified: Yes
EKG- Treatment ONCE
11/23/24 01:32
HYDROmorphone [Dilaudid] 0.5 mg IV NOW STA
11/23/24 02:00
miSOPROStol [Cytotec] 800 mcg SL ONCE ONE
11/23/24 02:46
Admit Patient As Directed
Co-Sign Provider:
Level of Care: Observation services
Assign to:: Medical/Surgical
Physician / Group: Meghana
Diagnosis: Vaginal bleeding/Anemia
Patient Condition: Good
Reason for Hospitalization: Acute bleeding/ Anemia
Expected length of stay greater than two midnights?: No
Reason for Overnight Stay: Bleeding/Bleeding Risk
Code Status As Directed
Resuscitation Status: Full Code
Bisacodyl [Dulcolax] 10 mg RECTAL [id number] PRN
Docusate W/Senna [Senokot-S] 1 tablet PO BIDPRN PRN
Polyethylene Glycol Powder [Miralax] 17 grams PO DAILYPRN PRN
PRN Pain Medication Management As Directed
May give lesser potent ordered pain med per pt: Yes
preference::
Protocol:: Medication orders for pain may be administered in a
manner that supports deferring to patient preference
when the pt is:
- Requesting an ordered lesser potent pain medication.
Least to most potent pain medications are defined
as: acetaminophen < NSAID < tramadol < opioids
(morphine, oxycodone, hydromorphone).
- Requesting a lesser dose of the same medication IF
ORDERED.
- Requesting a less intrusive route of administration
if both routes are prescribed by the provider (PO <
IV).
11/23/24 02:48
Notify MD As Directed
Notify physician if: Excessive vaginal bleeding
11/23/24 02:50
Activity As Directed
Activity Level: Out of Bed- Ad Ariadna
Vital Signs As Directed
Frequency: q4h
Call for:: Temp > 100.4, HR > 90, SBP < 90 > 140, DBP < 50> 90
Additional Instructions:: Observe vaginal bleeding
11/23/24 02:54
Pneumatic Compression Sleeves As Directed
Type: Knee high
DX Deep Vein Thrombosis Video Routine
11/23/24 03:00
Dextrose 5%/0.9%Sodchl 1000 ml [D5/0.9% Sodium Chloride] 1,000 ml IV 125 mls/hr
11/23/24 03:02
Complete Blood Count/With Diff Urgent
Comment: 2 hours after transfusion and then q 4 hours
11/23/24 Breakfast
Clear Liquid
11/23/24 08:00
miSOPROStol [Cytotec] 200 mcg PO QID
Abnormal Lab Results
11/22/24
23:46
WBC 16.0 H 10^3/uL
(4.8-10.8)
RBC 2.76 L 10^6/uL
(4.20-5.40)
Hgb 7.6 L g/dL
(12.0-16.0)
Hct 22.5 L %
(37.0-47.0)
RDW 14.7 H %
(11.5-14.5)
Abs Immat Gran (auto) 0.1 H 10^3/uL
(0-0.05)
Absolute Neuts (auto) 13.5 H 10^3/uL
(1.4-6.5)
Absolute Monos (auto) 0.9 H 10^3/uL
(0.1-0.6)
Neutrophils % 83.8 H %
(42.2-75.2)
Lymphocytes % 9.7 L %
(20.5-51.1)
Sodium 134 L mmol/L
(135-145)
Carbon Dioxide 20 L mmol/L
(22-30)
BUN 18 H mg/dl
(7-17)
Glucose 144 H mg/dl
(70-99)
Alkaline Phosphatase 31 L U/L
(38-126)
Crossmatch IS Only See Detail
11/22/24 23:46
Vital Signs
Initial and Last Documented VS:
Initial Vital Signs
BP
108/66
11/22/24 23:35
Last Documented Vital Signs
Temp Pulse Resp BP Pulse Ox
36.9 C 91 19 127/91 99
11/23/24 02:59 11/23/24 02:59 11/23/24 02:59 11/23/24 02:59 11/23/24 02:59
Procedures
IV Access
Indication: Emergent access required and Physician skill needed
Performed by:: Sanket Moulton MD
Site:: right AC
Gauge:: 18G
Ultrasound Guidance: Yes
MDM/Problems Addressed
Differential Diagnosis Includes:
Retained products of conception, uterine perforation
MDM/Problems Addressed:
24-year-old female presents for severe abdominal pain and vaginal bleeding after elective surgical this afternoon. She appears unwell, pale and in severe pain. Fortunately she is normotensive, heart rate 80s to 90s, mild tachypnea, no
hypoxia or fever. Physical exam as above. Bilateral large-bore IV access established. Labs sent off including a CBC and a CMP, hCG quant with a type and screen--CBC reviewed and shows acute anemia with a hemoglobin of 7.6 from prior baseline of
11.5. Chemistry no clinically significant abnormalities. Given severe firmness and tenderness of her abdomen will send directly for a CT of the abdomen and pelvis while awaiting bedside ultrasound. Will provide fluids and pain control.
Discussed with MARKETING INTELLIGENCE ANALYST for bedside assessment.
CHIEF OF STAFF recommending misoprostol 800 mcg buccally to help with bleeding.
Discussed with radiologist�moderate amount of likely blood in the uterus with small areas of extravasation. Appears to be mostly clot although there could be some retained products mixed in. There is some hemoperitoneum which could be from
retrograde flow through the fallopian tubes but uterine perforation also consideration after procedure. They are reviewing ultrasound but appears to be mainly consistent with blood with minimal visualized retained products. Discussed with MARKETING INTELLIGENCE ANALYST
who are at bedside. Admit to their service.
*Pulse Oximetry
SaO2: 100
Oxygen Mode of Delivery: Room air
Patient hypoxic: no (100%)
*EKG
Interpreted by ED Provider?: Yes
Heart Rate: 83
Rate: normal
Rhythm: sinus
Athena: normal axis
Interval: normal interval
QRS Pattern: normal QRS
Ischemia: no ischemia
*Critical Care Note
Total Time (30-74mins, 75-104mins- exclusive of procedures): 39
comment:
Critical care statement: A total of 39 minutes of critical care time was provided for this patient. This includes management of unstable vital signs, evaluation of the patient at bedside, frequent reassessment, discussion with
consultants/hospitalist, and review of pertinent medical records. This time was separate from time utilized to perform any aforementioned documented procedures
Data Reviewed
Review of Other/Old Records Reveals: Labs and Records
Source: patient and records
Patient Management
Discussion with other providers: Tying In Machine Operator (Discussed at length with MARKETING INTELLIGENCE ANALYST)
Escalation/DeEscalation of care consider admission/obs:
Admission indicated
ED Attending Note
-
Portions of this chart may have been created with voice recognition software.� Occasional wrong word or��sound alike� substitutions may have occurred due to the inherent limitations of voice recognition software.
Discharge Plan
Departure
Patient Disposition: Admit
Date of Disposition: 11/23/24
Time of Disposition: 01:42
Admit to doctor: Meghana
Presentation/result/management discussed w/ accepting MD/DO: MARKETING INTELLIGENCE ANALYST
Discharge Problem:
Acute blood loss anemia, Retained products of conception with hemorrhage
Prescriptions:
No Action
No Current Medications
0
Interventions
Interventions:
*Risk Screen - Suicide Last Done: 11/23/24 00:05
*General Assessment Last Done: 11/23/24 00:05
*Neglect/Abuse Screening Last Done: 11/23/24 00:05
ED-Female Genitourinary Assessment Last Done: 11/23/24 00:19
Discharge Date and Time
Print Language: ALGERIAN
[2024-11-23] MEDS: DILAUDID 1 MG IV (00:45)
[2024-11-23 01:08] LABS: Beta HCG Quantitative 37785.00 mIU/ml
[2024-11-23] MEDS: CYTOTEC 800 MCG SL (01:51)
[2024-11-23] MEDS: DILAUDID 0.5 MG IV ×6 (01:52→23:44)
[2024-11-23] MEDS: MOTRIN 800 MG PO (05:26)
[2024-11-23] MEDS: D5/0.9% SODIUM CHLORIDE 1000 IV ×2 (05:30→12:30)
[2024-11-23 06:35] LABS: Hematocrit 28.0 % (37.0-47.0); Hemoglobin 9.7 g/dL (12.0-16.0); Mean Corp Hgb Conc. 34.6 g/dL (33.0-37.0); Mean Corpuscular Volume 81.9 fL (81.0-99.0); Red Cell Dist. Width 14.1 % (11.5-14.5)
[2024-11-23 07:39] LABS: Nucleated Red Blood Cells % 0 %; Platelet Count 98 10^3/uL (130-400)
[2024-11-23] MEDS: CYTOTEC 200 MCG PO (09:37)
--- NOTE | 2024-11-23 10:55 | W.PN.GYN.DG ---
Today's Communication / Plan
-
Follow Hgb trend
Repeat quant hcg today
Monitor to make sure pt is stable and no increase in vaginal bleeding
Assessment / Plan
-
Assessment: S/p Elective D+E at 12 5/7 weeks elsewhere on 11/22/2024. Admitted for heavy vaginal bleeding and acute anemia
Hemodynamically stable.
s/p 2 units of blood. Good increase of hgb post transfusion
Bleeding has dramatically decreased since getting misoprostol.
Unsure if retained products versus uterine atony
Plan:
1. Monitor trend of hgb today
2. Repeat quant HCG to make sure going down. Will need to follow beta to zero to rule out retained products
3. Since bleeding has improved- will stop misoprostol and observe in the hospital to make sure no further heavy bleeding
4. Start doxy 100 mg BID for prophylaxis
Subjective / Objective Data
Subjective Data
Pt admitted overnight for observation given her heavy bleeding and acute anemia. s/p 2 doses of pRBCs. Hgb post transfusion up to 9.7 from 7.8
Bleeding dramatically improved after getting her 1st dose of misoprostol. Small amount of bleeding overnight.
Not able to get sleep b/c of the cramping but even the cramping is better than last night. Hungry- wants to eat and get a shower.
Not lightheded or dizzy
Objective Data
Vital Signs
Temp Pulse Resp BP Pulse Ox
99.1 F 88 16 120/73 98
11/23/24 07:40 11/23/24 07:40 11/23/24 07:40 11/23/24 07:40 11/23/24 08:29
Intake & Output
11/22/24 11/23/24 11/24/24
06:59 06:59 06:59
Intake Total 500 / 500
Balance 500 / 500
Intake:
Blood Product Amount Infused ( 500 / 500
mL)
Packed Rbc Leukoreduced Unit 250 / 250
[id number]
Packed Rbc Leukoreduced Unit 250 / 250
[id number]
Other:
Number of approximated MODERATE 3
amounts of urine
Physical Exam
-
Abdomen: Soft and Nontender
Other Findings:
Small amount of blood on sohail pad
Data Reviewed
-
Lab Data
11/22/24 23:46
[2024-11-23 11:37] LABS: Hematocrit 27.4 % (37.0-47.0); Hemoglobin 9.3 g/dL (12.0-16.0); Mean Corp Hgb Conc. 33.9 g/dL (33.0-37.0); Mean Corpuscular Volume 82.8 fL (81.0-99.0); Nucleated Red Blood Cells % 0 %; Platelet Count 108 10^3/uL (130-400); Red Cell Dist. Width 14.5 % (11.5-14.5)
[2024-11-23] MEDS: VIBRAMYCIN 100 MG PO ×2 (12:14→19:25)
[2024-11-23 12:27] LABS: Beta HCG Quantitative 17936.00 mIU/ml
--- NOTE | 2024-11-23 12:54 | CM ---
Reviewed the chart notes and spoke with the patient at the bedside. The patient is admitted under observational status. The observation letter was provided and explained. The patient had no questions with regards to the letter.
The patient resides with her mother and sister in a two story home with approximately five steps to enter. The patient reports no DME/VN/SNF in the past. [facility]
continues to be available to patient/family and is monitoring medical plan for needs at discharge.
Plan: Discharge to home when medically stable. No needs anticipated at this time.
[2024-11-23] MEDS: CYTOTEC PO ×2 (14:33→19:19)
[2024-11-23 15:52] LABS: Hematocrit 25.4 % (37.0-47.0); Hemoglobin 8.8 g/dL (12.0-16.0); Mean Corp Hgb Conc. 34.6 g/dL (33.0-37.0); Mean Corpuscular Volume 81.9 fL (81.0-99.0); Nucleated Red Blood Cells % 0 %; Platelet Count 95 10^3/uL (130-400); Red Cell Dist. Width 14.6 % (11.5-14.5)
[2024-11-23] MEDS: TORADOL 30 MG IV ×2 (16:44→21:52)
--- NOTE | 2024-11-23 18:55 | W.PN.GYN.DG ---
Today's Communication / Plan
-
Will continue to monitor vital signs
Will also continue to monitor pt's vaginal bleeding and hgb trend
Recheck CBC at 8 pm tonight
Misoprostol was stopped earlier today
Quant beta is trending down as expected and will need to be followed to zero as an outpt to r/o retained POC
All of this was discussed with pt. Pt understands and is comfortable with the plan
Assessment / Plan
-
Assessment:
Adm today from the ER s/p Elective termination at 12 57 weeks done elsewhere for profuse vaginal bleeding and acute anemia
S/p 2 units of blood
Good post transfusion hgb
Hgb stable since transfusion
While there is blood in the abd/pelvis on CT pt's vital signs are stable and hgb stable. There is no clinical evidence of on going bleeding
Blood maybe secondary to expulsion of blood thru the FT vs uterine perforation
Regardless of etiology of blood- pt is stable and no on going bleeding. No place for surgical intervention at this point given hemodynamic stability of the pt
Plan:
Will continue to monitor vital signs
Will also continue to monitor pt's vaginal bleeding and hgb trend
Recheck CBC at 8 pm tonight
Misoprostol was stopped earlier today
Quant beta is trending down as expected and will need to be followed to zero as an outpt to r/o retained POC
Subjective / Objective Data
Subjective Data
Pt's dad was with pt in the room. Pt underwent a CT earlier today b/c of increased abdominal pain. Results d/w radiologist at the time it was done and the results were discussed with pt at length.
Pt is having some mild lower pelvic cramping but more upper abdominal pain martell on the right upper quandrant
No nausea/ no vomiting . No CP/SOB. Denies being lightheaded or dizzy
Objective Data
Vital Signs
Temp Pulse Resp BP Pulse Ox
98.3 F 82 16 116/76 97
11/23/24 15:30 11/23/24 15:30 11/23/24 15:30 11/23/24 15:30 11/23/24 15:30
Intake & Output
11/22/24 11/23/24 11/24/24
06:59 06:59 06:59
Intake Total 500 / 500 720 / 720
Balance 500 / 500 720 / 720
Intake:
Oral fluids 720 / 720
Blood Product Amount Infused ( 500 / 500
mL)
Packed Rbc Leukoreduced Unit 250 / 250
[id number]
Packed Rbc Leukoreduced Unit 250 / 250
[id number]
Other:
Number of approximated MODERATE 4
amounts of urine
Physical Exam
-
Abdomen: Soft, Nontender and Other (Nondistended. No Hepatospenomegly)
Bowel Sounds: Normal
Extremities: No Calf Tenderness and No Edema
Other Findings:
Peripad- min blood
Data Reviewed
-
Lab Data
11/22/24 23:46
[2024-11-23 20:50] LABS: Hematocrit 24.1 % (37.0-47.0); Hemoglobin 8.4 g/dL (12.0-16.0); Mean Corp Hgb Conc. 34.9 g/dL (33.0-37.0); Mean Corpuscular Volume 80.9 fL (81.0-99.0); Nucleated Red Blood Cells % 0 %; Red Cell Dist. Width 14.7 % (11.5-14.5)
[2024-11-23 21:05] LABS: Platelet Count 86 10^3/uL (130-400)
[2024-11-24 03:06] VITALS: BP 102/76
[2024-11-24] MEDS: TORADOL 30 MG IV ×2 (04:05→10:26)
[2024-11-24 04:33] LABS: Hematocrit 23.1 % (37.0-47.0); Hemoglobin 8.0 g/dL (12.0-16.0); Mean Corp Hgb Conc. 34.6 g/dL (33.0-37.0); Mean Corpuscular Volume 81.3 fL (81.0-99.0); Platelet Count 104 10^3/uL (130-400); Red Cell Dist. Width 14.6 % (11.5-14.5)
[2024-11-24] MEDS: MYLICON 80 MG PO (04:56)
[2024-11-24] MEDS: DILAUDID 0.5 MG IV ×3 (05:00→17:20)
[2024-11-24 05:16] LABS: Beta HCG Quantitative 11655.00 mIU/ml
[2024-11-24 07:52] LABS: Hematocrit 23.7 % (37.0-47.0); Hemoglobin 8.1 g/dL (12.0-16.0)
[2024-11-24 08:42] VITALS: BP 115/78
--- NOTE | 2024-11-24 09:27 | CM ---
Reviewed the chart notes. Patient to receive 1 unit PRBC today. CM continues to be available to patient/family and is monitoring medical plan for needs at discharge.
Plan: Discharge to home when medically stable. No needs anticipated at this time.
--- NOTE | 2024-11-24 09:54 | W.PN.GYN.DG ---
Today's Communication / Plan
-
Hgb are stable and have leveled off. No evidence of any on going bleeding.
pt to get 1 unit of pRBCs today to bring hgb closer to 9.0-- then she is ready for d/c home
Importance of f/u d/w pt
Pt gets her INDUSTRIAL RELATIONS DIRECTOR care at [facility]. Pt wants to f/u with them- Dr Camryn Cruz
Pt's beta will need to be followed to zero to r/o retained POC
Assessment / Plan
-
Assessment: Pt adm 11/23 for profuse vaginal bleeding, anemia s/p elective termination of else where
Pt is afebrile and HD stable
No evidence of any further blood loss
Hgb is stable and has now leveled off 8.4-8.0- 8.1
Plan:
Will transfuse pt 1 unit of blood to bring pt's hgb closer to 9.0
No further on going bleeding
betas going down approp
D/c home after transfusion
Subjective / Objective Data
Subjective Data
No problems overnight. Small amount of vaginal bleeding. No passage of tissue. No heavy bleeding and no clots. Mild pelvic cramping
Denies CP/SOB/ leg pain
Objective Data
Vital Signs
Temp Pulse Resp BP Pulse Ox
98.2 F 86 18 115/78 99
11/24/24 08:42 11/24/24 08:42 11/24/24 08:42 11/24/24 08:42 11/24/24 08:42
Intake & Output
11/23/24 11/24/24 11/25/24
06:59 06:59 06:59
Intake Total 500 / 500 720 / 720
Balance 500 / 500 720 / 720
Intake:
Oral fluids 720 / 720
Blood Product Amount Infused ( 500 / 500
mL)
Packed Rbc Leukoreduced Unit 250 / 250
[id number]
Packed Rbc Leukoreduced Unit 250 / 250
[id number]
Other:
Number of approximated MODERATE 4
amounts of urine
Physical Exam
-
Abdomen: Soft, Nontender (Nondistended) and Other (uterus is no longer palpable abdominally)
Extremities: No Calf Tenderness and Edema
Other Findings:
No blood on sohail pad
Data Reviewed
-
Lab Data
11/24/24 07:43
11/22/24 23:46
[2024-11-24] MEDS: VIBRAMYCIN 100 MG PO (10:26)
[2024-11-24 10:39] VITALS: BP 107/72
[2024-11-24 10:59] VITALS: BP 113/80
[2024-11-24] MEDS: BENADRYL 50 MG IV (13:08)
[2024-11-24 14:11] VITALS: BP 135/86
[2024-11-24 15:07] VITALS: BP 135/93
--- NOTE | 2024-11-24 15:42 | W.PN.UPDATE ---
Update Note
Progress Note Update
Pt is s/p 1 unit of blood today after pt's hgb level has leveled out. She is now ready for discharge. Pt to follow up with [facility] 11/27/2024. Importance of follow up d/w pt. Pt will need to have quant beta and Hgb repeated
next week. Beta needs to be followed to zero to make sure no retained POC. Pt to return to the ER with increased vaginal bleeding and /or Increased pain
== END 2024-11-24 18:35 | disposition home or self-care (01) ==
LOC: 2 NORTH 04:23
PROVIDERS: Nurse Practitioner Gerontology; ADMITTING PHYSICIAN Obstetrics & Gynecology Gynecology; EMERGENCY PHYSICIAN Emergency Medicine
PROC: 30233N1 Transfusion of Nonautologous Red Blood Cells into Peripheral Vein, Percutaneous Approach (ICD-10-PCS; 2024-11-23)
DX: O04.6 Delayed or excessive hemorrhage following (induced) termination of pregnancy (principal); D62 Acute posthemorrhagic anemia; K66.1 Hemoperitoneum; F17.200 Nicotine dependence, unspecified, uncomplicated
CPT/HCPCS: 36430; 74177; 74178; 76856; 80053; 84702; 85014; 85018; 85025; 85027; 86850; 86900; 86901; 86920; 93005; 96361; 96374; 96375; 96376; 99291; G0378; P9016; Q9967

== ENCOUNTER 2024-11-27 10:22 | Emergency (ER) | payer OTHER, SELFPAY ==
[2024-11-27 10:44] VITALS: BP 135/99
--- NOTE | 2024-11-27 11:56 | ED.GENMED ---
History of Present Illness
<Braulio Mack MD, Resident - Last Filed: 11/27/24 13:38>
General
Chief Complaint: Chest Pain
Source: patient
Exam Limitations: none
Time Seen by Provider: 11/27/24 11:52
History of Present Illness
History of Present Illness:
This is a 24-year-old female who was admitted at [facility] recently due to acute blood loss anemia secondary to vaginal bleeding after elective surgical at [facility] in [facility]. She required multiple
blood transfusions in addition to IV fluid during her stay at the hospital. She was started on Doxy 100 mg twice daily for prophylaxis and was advised to follow-up outpatient to trend quant hCG to make sure that it trend down to 0 to rule out any
retained products. She did not make recommended outpatient appointment for a follow-up with CHIEF EXECUTIVE OR MANAGING DIRECTOR. Today she is presenting with complaints of lower chest pain/epigastric pain which started around 9:30 in the morning. Denies any radiation, denies
any nausea or vomiting, denies any fevers or chills, denies any GI or urinary symptoms. Reports that she continues to have vaginal bleeding but it is getting better and now that the amount of vaginal bleeding is minimal.
She also complains of generalized weakness and fatigue.
Denies any trouble breathing, visual changes, headache, sore throat or cough.
Since discharge from the hospital on Wednesday she has been using ibuprofen 800 mg 3 times a day for expected intermittent lower abdominal/pelvic pain.
Past History
<Braulio Mack MD, Resident - Last Filed: 11/27/24 13:38>
Past History
ED Past Medical History: HTN, Psychiatric (Anxiety/Depression) and Other (Kidney issue as a child has since resolved.)
ED Past Surgical History: Gynecological, Tonsilectomy (And adenoids) and Other (Tear duct surgery)
Social History
Tobacco: Vaping
Alcohol: None
Drug: None
Personal: Single
Living: with family
Employment: Not employed
Family History
Family History: Other (Noncontributory)
Review of Systems
<Braulio Mack MD, Resident - Last Filed: 11/27/24 13:38>
Review of Systems
All Other Systems: ROS reviewed and negative except as documented in HPI and ROS
Constitutional: Denies fever or chills
EENT: Denies sore throat
Respiratory: Denies trouble breathing
Cardiac: Reports chest pain
ABD/GI: Reports abdominal pain (Epigastric); Denies nausea or vomiting
: Reports bleeding (Vaginal)
Neurological: Denies dizzy or headache
Phy Exam
<Braulio Mack MD, Resident - Last Filed: 11/27/24 13:38>
General Physical Exam
General Presentation: no apparent distress
General age: appears stated age
General Skin: warm
General Habitus: normal
General Mental: alert
General Hydration: appears well hydrated
Cardiovascular Exam
Cardiovascular Exam: regular rate/rhythm and no murmur
Pulmonary Exam
Pulmonary Exam: lungs clear, no respiratory distress and no cough
Gastrointestinal Exam
Gastrointestinal Exam: soft, non distended and tender (Epigastric)
Neurological Exam
Neurological Exam: alert, oriented x3, no motor deficits and no sensory deficits
Skin Exam
Skin Exam: normal color and no rash
Scores
<Braulio Mack MD, Resident - Last Filed: 11/27/24 13:38>
Heart Score for Chest Pain Patients
Heart Score for Chest Pain Patients: 0
Heart Score Risk: 2.5% MACE over next 6 weeks
<Alana Odell, DO - Last Filed: 11/27/24 13:35>
Heart Score for Chest Pain Patients
STEMI patient?: No
History: Slightly or Non-Suspicious
ECG: Normal
Age: </= 45 years
Risk Factors: No Risk Factors
Troponin: </= Normal Limit
Heart Score for Chest Pain Patients: 0
Heart Score Risk: 2.5% MACE over next 6 weeks
Course
<Braulio Mack MD, Resident - Last Filed: 11/27/24 13:38>
Orders/Labs/Results
Orders:
Orders
11/27/24 10:46
EKG [Electrocardiogram (*1)] Urgent
Reason for Study: Chest Pain
11/27/24 10:47
EKG- Treatment ONCE
11/27/24 12:20
Add On- LAB Urgent
Tests Added?: Lipase
11/27/24 12:24
Complete Blood Count/With Diff Urgent
Comprehensive Metabolic Panel Urgent
HCG, Beta Quantitative [Beta HCG Quantitative] Urgent
Is this a screen?: No
Lipase Urgent
Comment: ADD ON
Troponin I Urgent
11/27/24 12:37
Mag Hydrox/Al Hydrox/Simeth [Maalox] 30 ml PO NOW STA
Pantoprazole [Protonix] 40 mg PO NOW STA
11/27/24 13:24
Oxycodone/Acetaminophen [Percocet 5/325] 1 tablet PO NOW STA
Abnormal Lab Results
11/27/24
12:24
Hgb 11.8 L D g/dL
(12.0-16.0)
Hct 35.2 L %
(37.0-47.0)
MPV 10.5 H fL
(7.4-10.4)
Abs Immat Gran (auto) 0.1 H 10^3/uL
(0-0.05)
Immature Gran % 0.8 H %
(0-0.5)
Creatinine 0.5 L mg/dL
(0.6-1.0)
Alkaline Phosphatase 31 L U/L
(38-126)
11/27/24 12:24
11/27/24 12:24
Vital Signs
Initial and Last Documented VS:
Initial Vital Signs
Temp Pulse Resp BP Pulse Ox
98.5 F 99 18 135/99 99
11/27/24 10:44 11/27/24 10:44 11/27/24 10:44 11/27/24 10:44 11/27/24 10:44
Last Documented Vital Signs
Temp Pulse Resp BP Pulse Ox
98.5 F 99 18 142/102 100
11/27/24 10:44 11/27/24 10:44 11/27/24 10:44 11/27/24 13:00 11/27/24 13:15
<Alana Odell, DO - Last Filed: 11/27/24 13:35>
Orders/Labs/Results
Orders:
Orders
11/27/24 10:46
EKG [Electrocardiogram (*1)] Urgent
Reason for Study: Chest Pain
11/27/24 10:47
EKG- Treatment ONCE
11/27/24 12:20
Add On- LAB Urgent
Tests Added?: Lipase
11/27/24 12:24
Complete Blood Count/With Diff Urgent
Comprehensive Metabolic Panel Urgent
HCG, Beta Quantitative [Beta HCG Quantitative] Urgent
Is this a screen?: No
Lipase Urgent
Comment: ADD ON
Troponin I Urgent
11/27/24 12:37
Mag Hydrox/Al Hydrox/Simeth [Maalox] 30 ml PO NOW STA
Pantoprazole [Protonix] 40 mg PO NOW STA
11/27/24 13:24
Oxycodone/Acetaminophen [Percocet 5/325] 1 tablet PO NOW STA
Abnormal Lab Results
11/27/24
12:24
Hgb 11.8 L D g/dL
(12.0-16.0)
Hct 35.2 L %
(37.0-47.0)
MPV 10.5 H fL
(7.4-10.4)
Abs Immat Gran (auto) 0.1 H 10^3/uL
(0-0.05)
Immature Gran % 0.8 H %
(0-0.5)
Creatinine 0.5 L mg/dL
(0.6-1.0)
Alkaline Phosphatase 31 L U/L
(38-126)
11/27/24 12:24
11/27/24 12:24
Vital Signs
Initial and Last Documented VS:
Initial Vital Signs
Temp Pulse Resp BP Pulse Ox
98.5 F 99 18 135/99 99
11/27/24 10:44 11/27/24 10:44 11/27/24 10:44 11/27/24 10:44 11/27/24 10:44
Last Documented Vital Signs
Temp Pulse Resp BP Pulse Ox
98.5 F 99 18 142/102 100
11/27/24 10:44 11/27/24 10:44 11/27/24 10:44 11/27/24 13:00 11/27/24 13:15
<Braulio Mack MD, Resident - Last Filed: 11/27/24 13:38>
MDM/Problems Addressed
Differential Diagnosis Includes:
Gastritis vs PUD vs pancreatitis vs less likely cardiac
MDM/Problems Addressed:
EKG with normal sinus rhythm
Check CBC, CMP, Trop
Check quant hCG
1 dose of Maalox p.o.
1 dose of Protonix 40 mg p.o.
CBC with hemoglobin of 11.8 CMP with creatinine of 0.5 otherwise unremarkable. Lipase within normal limit.
Trops and beta-hCG pending
update:
Troponin undetectable
Beta-hCG quant 2096
Percocet 09/09/2024 for ongoing pelvic pain per patient's request.
Shared decision was made with the patient for discharge home vitals remained stable here. Return precautions reviewed. Informed patient that she should follow-up with CHIEF EXECUTIVE OR MANAGING DIRECTOR outpatient and as per the notes/records from her previous visit she needs to
follow up on quant hCG to 0 to make sure there is no retained POC. Discussed use if nsaids with food. Use of PPI to reduce acid production in stomach. Patient plans to buy it OTC. Patient voices understanding and agree with the plan.
<Braulio Mack MD, Resident - Last Filed: 11/27/24 13:38>
*Pulse Oximetry
SaO2: 99
Oxygen Mode of Delivery: Room air
Patient hypoxic: no
*Critical Care Note
Total Time (30-74mins, 75-104mins- exclusive of procedures): Not Applicable
ED Attending Note
<Braulio Mack MD, Resident - Last Filed: 11/27/24 13:38>
-
Portions of this chart may have been created with voice recognition software.� Occasional wrong word or��sound alike� substitutions may have occurred due to the inherent limitations of voice recognition software.
<Alana Odell DO - Last Filed: 11/27/24 13:35>
ED Attending Note
Patient seen and examined by attending physician: Yes
I performed the substantive portion of visit, reviewed & personally made and approve the management plan that is documented in note by myself or LASHAE.: Yes
I performed a history and physical exam of patient and discussed management with resident, I reviewed resident's note and agree with documented findings and plan of care.: Yes
ED Attending Note:
24-year-old female with recent admission for D&E due to retained products of conception with complication of anemia status posttransfusion presenting for chest pain and epigastric abdominal pain. Patient reports symptoms started today. She was
just discharged from the hospital 3 days ago. She has been taking ibuprofen for postsurgical pain. She notes that the vaginal bleeding is overall improving. Denies any cardiac history. Pain is in the epigastric region of the abdomen. Denies any
radiation of pain. Denies any difficulty breathing. She notes she has been taking ibuprofen on an empty stomach. Vital signs are normal.
On exam patient is resting comfortably, no acute distress or discomfort. Unremarkable cardiac and pulmonary exam with reproducible tenderness to the epigastric abdomen, no rebound or guarding. No additional tenderness to the abdomen, slight this
to the lower abdomen, status post D and E. EKG reviewed, nonischemic. Patient without significant cardiac risk factors or concern for ACS. Ultimately suspect gastritis, likely from NSAID usage labs obtained, unremarkable with improving
hemoglobin. Patient administered Maalox and pantoprazole for her symptoms. Feel that patient is stable for discharge with outpatient follow-up. Advised that if she continues to use ibuprofen, to take with food. Return precautions discussed and
patient verbalized understanding
Discharge Plan
Departure
Patient Disposition: Home (Routine Discharge)
Date of Disposition: 11/27/24
Time of Disposition: 13:27
Patient with high blood pressure during this ER visit?: Yes
Discharge Problem:
Epigastric abdominal pain
Instructions: Acid Reflux and GERD in Adults (DC), Nonsteroidal antiinflammatory drugs (NSAIDs), BLOOD PRESSURE
Prescriptions:
No Action
No Current Medications
0
Referrals:
[facility] [Other] - Follow up in 1 week
NONE,* [Family Provider, Internal Medicine]
Activity Restrictions/Additional Instructions:
You were seen at [facility] emergency department with complaints of lower chest/abdominal pain. While you were in the hospital we performed blood test including complete blood count which showed hemoglobin of 11.8, complete metabolic panel
which was unremarkable, serum lipase within normal limits, beta-hCG quantitative 2097( [id number] on 11/24). You were given 1 dose of Percocet 5/325 in the hospital for pain. EKG showed normal sinus rhythm. Serum troponin was undetectable. Very likely
that your pain is due to use of ibuprofen which can cause irritation of the lining of stomach/gut. We recommend that you take ibuprofen with food. Please follow-up with outpatient gynecology as beta-hCG needed to be follow-up with trend down to 0
to make sure there is no retained POC. If you develop any fevers or chills, excessive vaginal bleeding, chest pain, trouble breathing or any worrisome concern please return to the emergency.
Interventions
Interventions:
*Risk Screen - Suicide Last Done: 11/27/24 10:44
*General Assessment Last Done: 11/27/24 10:44
*Neglect/Abuse Screening Last Done: 11/27/24 12:12
*ED- Fall Risk Assessment Last Done: 11/27/24 12:12
*ED COVID-19 Vaccine History Last Done: 11/27/24 12:12
ED- Cardiac Assessment Last Done: 11/27/24 12:12
Discharge Date and Time
Print Language: SWEDISH
[2024-11-27 12:12] VITALS: BMI 22.0
[2024-11-27 12:22] VITALS: BP 130/102
[2024-11-27 12:34] LABS: Hematocrit 35.2 % (37.0-47.0); Hemoglobin 11.8 g/dL (12.0-16.0); Mean Corp Hgb Conc. 33.5 g/dL (33.0-37.0); Mean Corpuscular Volume 83.0 fL (81.0-99.0); Nucleated Red Blood Cells % 0 %; Platelet Count 254 10^3/uL (130-400); Red Cell Dist. Width 14.3 % (11.5-14.5)
[2024-11-27 12:46] LABS: ALT (SGPT) 11 U/L (0-35); AST (SGOT) 19 U/L (14-36); Albumin 4.1 g/dl (3.5-5.0); Alkaline Phosphatase 31 U/L (38-126); Blood Urea Nitrogen 10 mg/dl (7-17); Calcium 9.4 mg/dl (8.4-10.2); Carbon Dioxide 28 mmol/L (22-30); Chloride 104 mmol/L (98-107); Estimated Creatinine Clearance 107 ml/min; Glucose 90 mg/dl (70-99); Lipase 99 U/L (23-300); Potassium 4.4 mmol/L (3.5-5.1); Sodium 135 mmol/L (135-145); Total Protein 7.1 g/dl (6.3-8.2); eGFR > 60.00
[2024-11-27] MEDS: PROTONIX 40 MG PO (12:51)
[2024-11-27] MEDS: MAALOX 30 ML PO (12:51)
[2024-11-27 12:58] LABS: Troponin I < 0.012 ng/ml
[2024-11-27 13:00] VITALS: BP 142/102
[2024-11-27 13:18] LABS: Beta HCG Quantitative 2097.00 mIU/ml
[2024-11-27] MEDS: PERCOCET 5/325 1 TABLET PO (13:34)
== END 2024-11-27 13:43 | disposition home or self-care (01) ==
LOC: EMR 10:22
PROVIDERS: EMERGENCY PHYSICIAN Student in an Organized Health Care Education/Training Program
DX: R10.13 Epigastric pain (principal); I10 Essential (primary) hypertension; N93.9 Abnormal uterine and vaginal bleeding, unspecified; F17.290 Nicotine dependence, other tobacco product, uncomplicated
CPT/HCPCS: 99284; 80053; 83690; 84484; 84702; 85025; 93005

== ENCOUNTER 2025-03-20 17:46 | Emergency (ER) | payer OTHER, SELFPAY ==
[2025-03-20 17:56] VITALS: BP 149/105
[2025-03-20 18:16] VITALS: BMI 25.4
[2025-03-20] MEDS: NSS 1000 IV (18:25)
--- NOTE | 2025-03-20 18:32 | ED.GENMED ---
History of Present Illness
<Fany Calderon RESEARCH ASSISTANT MEMBER - Last Filed: 03/20/25 20:21>
General
Chief Complaint: Vaginal Bleeding
Source: patient
Exam Limitations: none
Time Seen by Provider: 03/20/25 18:05
Nursing documentation reviewed up to this point in time: agreed with
History of Present Illness
History of Present Illness:
24-year-old female with history of HTN, Ab2 (last AB was 11/2024), presents with heavy vaginal bleeding with large clots since this a.m. LMP was on time, 'last month.' Denies SOB, CP, has some abdominal cramping and low back cramps. Denies
fever/chills.
Past History
<Fany Calderon, RESEARCH ASSISTANT MEMBER - Last Filed: 03/20/25 20:21>
Past History
ED Past Medical History: HTN, Psychiatric (Anxiety/Depression) and Other (Kidney issue as a child has since resolved.)
ED Past Surgical History: Gynecological, Tonsilectomy (And adenoids) and Other (Tear duct surgery)
Social History
Tobacco: Vaping
Alcohol: None
Drug: None
Personal: Single
Living: with family
Employment: Not employed
Family History
Family History: Other (Noncontributory)
Review of Systems
<Fany Calderon, RESEARCH ASSISTANT MEMBER - Last Filed: 03/20/25 20:21>
Review of Systems
Allergies reviewed?: Yes
All Other Systems: ROS reviewed and negative except as documented in HPI and ROS
Constitutional: Denies fever or chills
Respiratory: Denies trouble breathing
Cardiac: Denies chest pain or syncope
ABD/GI: Reports abdominal pain; Denies nausea, vomiting or diarrhea
: Reports bleeding; Denies dysuria, frequency or difficulty voiding
Musculoskeletal: Reports no symptoms
Skin: Reports no symptoms
Neurological: Reports no symptoms
Phy Exam
<Fany Calderon, RESEARCH ASSISTANT MEMBER - Last Filed: 03/20/25 20:21>
Physical Exam
Physical Exam:
GENERAL: No acute distress. A&Ox3.
CONSTITUTIONAL: Afebrile.
EYES: clear, conjunctivae normal
ENMT: moist mucus membranes
RESPIRATORY: Regular respirations, nonlabored, lungs clear.
CARDIOVASCULAR: Regular rate and rhythm, no murmurs, no rubs.
GI: Soft, mildly generally tender, kg, normal BS
: Fist sized clot in trash can and bathroom.
MUSCULOSKELETAL: Moves with ease. Well perfused.
SKIN: Warm, dry, pink
PSYCH: Normal mood and affect. Well kept, interactive and appropriate
NEUROLOGIC: Awake, alert and oriented. No focal neurological deficits
Course
<Fany Calderon, RESEARCH ASSISTANT MEMBER - Last Filed: 03/20/25 20:21>
Orders/Labs/Results
Orders:
Orders
03/20/25 18:06
0.9% Sodium Chloride 1000 ml [Nss] 1,000 ml IV BOLUS
Test Result ONCE
03/20/25 18:25
Beta HCG Quantitative Urgent
Complete Blood Count/With Diff Urgent
Comprehensive Metabolic Panel Urgent
HCG, Serum Qualitative Screen Urgent
03/20/25 18:56
US W Transvaginal Urgent
Reason For Exam: heavy bleeding w clots, Pos HCG
03/20/25 19:00
Add On- LAB Urgent
Tests Added?: Beta HCG Quantitative
03/20/25 19:32
Acetaminophen [Tylenol] 1,000 mg PO NOW STA
03/20/25 21:06
HGB [Hemoglobin] Urgent
03/20/25 22:10
Ketorolac [Toradol] 15 mg IV NOW STA
03/20/25 23:18
HGB [Hemoglobin] Urgent
Abnormal Lab Results
03/20/25 03/20/25
21:06
Hgb 10.4 L g/dL
(12.0-16.0)
MPV 11.0 H fL
(7.4-10.4)
Creatinine 0.5 L mg/dL
(0.6-1.0)
Glucose 105 H mg/dl
(70-99)
Alkaline Phosphatase 35 L U/L
(38-126)
03/20/25 23:18
03/20/25 18:25
Vital Signs
Initial and Last Documented VS:
Initial Vital Signs
Temp Pulse Resp BP Pulse Ox
99.0 F 127 18 149/105 97
03/20/25 17:56 03/20/25 17:56 03/20/25 17:56 03/20/25 17:56 03/20/25 17:56
Last Documented Vital Signs
Temp Pulse Resp BP Pulse Ox
99.0 F 81 18 137/85 97
03/20/25 17:56 03/20/25 23:30 03/20/25 19:00 03/20/25 23:00 03/20/25 18:34
<Trini Patino PA-C - Last Filed: 03/21/25 00:01>
Orders/Labs/Results
Orders:
Orders
03/20/25 18:06
0.9% Sodium Chloride 1000 ml [Nss] 1,000 ml IV BOLUS
Test Result ONCE
03/20/25 18:25
Beta HCG Quantitative Urgent
Complete Blood Count/With Diff Urgent
Comprehensive Metabolic Panel Urgent
HCG, Serum Qualitative Screen Urgent
03/20/25 18:56
US W Transvaginal Urgent
Reason For Exam: heavy bleeding w clots, Pos HCG
03/20/25 19:00
Add On- LAB Urgent
Tests Added?: Beta HCG Quantitative
03/20/25 19:32
Acetaminophen [Tylenol] 1,000 mg PO NOW STA
03/20/25 21:06
HGB [Hemoglobin] Urgent
03/20/25 22:10
Ketorolac [Toradol] 15 mg IV NOW STA
03/20/25 23:18
HGB [Hemoglobin] Urgent
Abnormal Lab Results
03/20/25 03/20/25
18: 21:06
Hgb 10.4 L g/dL
(12.0-16.0)
MPV 11.0 H fL
(7.4-10.4)
Creatinine 0.5 L mg/dL
(0.6-1.0)
Glucose 105 H mg/dl
(70-99)
Alkaline Phosphatase 35 L U/L
(38-126)
03/20/25 23:18
03/20/25 18:25
Vital Signs
Initial and Last Documented VS:
Initial Vital Signs
Temp Pulse Resp BP Pulse Ox
99.0 F 127 18 149/105 97
03/20/25 17:56 03/20/25 17:56 03/20/25 17:56 03/20/25 17:56 03/20/25 17:56
Last Documented Vital Signs
Temp Pulse Resp BP Pulse Ox
99.0 F 81 18 137/85 97
03/20/25 17:56 03/20/25 23:30 03/20/25 19:00 03/20/25 23:00 03/20/25 18:34
<Fany Calderon NP - Last Filed: 03/20/25 20:21>
MDM/Problems Addressed
Differential Diagnosis Includes:
Uterine fibroid, , miscarriage
MDM/Problems Addressed:
24-year-old female with history of HTN, Anxiety/Depression, Ab2 (last AB was 11/2024), presents with heavy vaginal bleeding with large clots since this a.m. LMP was on time, 'last month.' Denies SOB, CP, has some abdominal cramping and low back
cramps. Denies fever/chills.
Hemodynamically stable
Patient passed a fist sized clot in the bathroom while here
She has a picture on her phone of a clot she passed at home which appears to be large
all questions answered, she wondered why she was having ultrasound explained possible uterine fibroids,
7:15 PM:
Beta-hCG qualitative comes back positive
CBC normal
CMP normal
Test results given to patient,
Beta quant pending
Ultrasound pending
7:40 p.m.
Pt to US
8:20 PM:
Patient back from ultrasound, awaiting ultrasound results.
Case discussed with Libby BATES who will assume care from this point
<Fany Calderon RESEARCH ASSISTANT MEMBER - Last Filed: 03/20/25 20:21>
*Pulse Oximetry
SaO2: 97
Oxygen Mode of Delivery: Room air
<Trini Patino PA-C - Last Filed: 03/21/25 00:01>
*Radiology
Radiology exam reviewed: radiology read reviewed
*Pulse Oximetry
Patient hypoxic: no
*EKG
Interpreted by ED Provider?: NA
*Senior Security Engineer Interpretation
Rate: normal
Interpretation: normal
Heart Rate: 88
Rhythm: sinus
*Critical Care Note
Total Time (30-74mins, 75-104mins- exclusive of procedures): Not Applicable
<Trini Patino PA-C - Last Filed: 03/21/25 00:01>
Patient Management
Discussion with other providers: Technical Applications Scientist (Case discussed with RESPIRATORY CARE ASSISTANT)
<Trini Patino PA-C - Last Filed: 03/21/25 00:01>
Update Note
Update Note:
Update 9 PM: Assumed care of patient pending ultrasound. Ultrasound report shows thickened endometrium with evidence of possible clots in central uterus consistent with potential miscarriage. No abnormal adnexal masses or free pelvic fluid. I did
reassess patient at bedside who appears well, her heart rate has normalized. However�she did express that she was 'gushing blood all over the floor at ultrasound'. Will check repeat hemoglobin.
Update 9:45 PM: Repeat hemoglobin of 10.4 which is almost a 2 g drop since arrival to ED. Discussed with RESPIRATORY CARE ASSISTANT on-call, Dr. Khan. Will plan to recheck hemoglobin in 2 hours to further trend. With suspected miscarriage and elevated hCG�this
will require close outpatient follow-up.
Update 11:39 PM: I performed a speculum exam which showed some bright red blood in vaginal vault without any visualized clots or tissue. There was no pooling of blood. Repeat hemoglobin increased to 12.2. Her heart rate has normalized and is in
the 80s. She remains hemodynamically stable and well-appearing. At this point, feel stable for discharge home. I did express importance of repeat hCG value in 48 hours. She was given contact information for our RESPIRATORY CARE ASSISTANT group. Very strict return
precautions discussed with patient including any persistent/worsening bleeding, lightheadedness, shortness of breath, fatigue, etc. Patient expressed verbal understanding and is comfortable with plan
ED Attending Note
<Fany Calderon NP - Last Filed: 03/20/25 20:21>
-
Portions of this chart may have been created with voice recognition software.� Occasional wrong word or��sound alike� substitutions may have occurred due to the inherent limitations of voice recognition software.
Discharge Plan
Departure
Patient Disposition: Home (Routine Discharge)
Date of Disposition: 03/20/25
Time of Disposition: 23:39
Patient with high blood pressure during this ER visit?: Yes
Condition: Good
Discharge Problem:
Spontaneous , Vaginal bleeding
Instructions: Miscarriage (DC), BLOOD PRESSURE
Prescriptions:
No Action
No Current Medications
0
Referrals:
Meliza Khan MD [Active, Gynecology] - Tomorrow
NONE,* [Family Provider, Internal Medicine]
Activity Restrictions/Additional Instructions:
RETURN TO THE EMERGENCY DEPARTMENT WITH ANY PERSISTENT/WORSENING ABDOMINAL CRAMPING, PERSISTENT HEAVY BLEEDING OR PASSING LARGE CLOTS, SHORTNESS OF BREATH, WEAKNESS, FATIGUE, WORSENING CURRENT SYMPTOMS, OR ANY OTHER CONCERNS
- As discussed, your hemoglobin remained stable today in the emergency department. Your hCG test was positive however your ultrasound unfortunately showed findings consistent with a possible miscarriage
- IT IS VERY IMPORTANT THAT YOU HAVE A REPEAT HCG IN 48 HOURS. PLEASE CONTACT THE RESPIRATORY CARE ASSISTANT TO SCHEDULE AN APPOINTMENT.
- It is important to stay well-hydrated. I would adhere to pelvic rest until cleared by RESPIRATORY CARE ASSISTANT
Monitor your symptoms very closely and return to the emergency department with any acute worsening/new symptoms or any other concerns
Interventions
Interventions:
*Risk Screen - Suicide Last Done: 03/20/25 17:56
*General Assessment Last Done: 03/20/25 17:56
*Neglect/Abuse Screening Last Done: 03/20/25 17:56
*ED COVID-19 Vaccine History Last Done: 03/20/25 17:56
*ED Influenza Vaccine History Last Done: 03/20/25 17:56
ED-Female Genitourinary Assessment Last Done: 03/20/25 21:14
Discharge Date and Time
Print Language: BENGALI
[2025-03-20 18:47] LABS: HCG, Serum Qualitative Screen Positive
[2025-03-20 18:52] LABS: ALT (SGPT) 12 U/L (0-35); AST (SGOT) 19 U/L (14-36); Albumin 4.7 g/dl (3.5-5.0); Alkaline Phosphatase 35 U/L (38-126); Blood Urea Nitrogen 10 mg/dl (7-17); Calcium 9.3 mg/dl (8.4-10.2); Carbon Dioxide 22 mmol/L (22-30); Chloride 105 mmol/L (98-107); Estimated Creatinine Clearance 107 ml/min; Glucose 105 mg/dl (70-99); Potassium 4.1 mmol/L (3.5-5.1); Sodium 136 mmol/L (135-145); Total Protein 7.8 g/dl (6.3-8.2); eGFR > 60.00
[2025-03-20 19:00] LABS: Hematocrit 37.0 % (37.0-47.0); Hemoglobin 12.6 g/dL (12.0-16.0); Mean Corp Hgb Conc. 34.1 g/dL (33.0-37.0); Mean Corpuscular Volume 87.9 fL (81.0-99.0); Nucleated Red Blood Cells % 0 %; Platelet Count 326 10^3/uL (130-400); Red Cell Dist. Width 12.6 % (11.5-14.5)
[2025-03-20] MEDS: TYLENOL 1000 MG PO (19:36)
[2025-03-20 20:29] LABS: Beta HCG Quantitative 22584.00 mIU/ml
[2025-03-20 21:16] LABS: Hemoglobin 10.4 g/dL (12.0-16.0)
[2025-03-20] MEDS: TORADOL 15 MG IV (22:32)
[2025-03-20 23:00] VITALS: BP 137/85
[2025-03-20 23:23] LABS: Hemoglobin 12.2 g/dL (12.0-16.0)
== END 2025-03-21 00:32 | disposition home or self-care (01) ==
LOC: EMR 17:46
PROVIDERS: Physician Assistant; Registered Nurse; EMERGENCY PHYSICIAN Emergency Medicine
DX: O03.9 Complete or unspecified spontaneous abortion without complication (principal); I10 Essential (primary) hypertension; F41.9 Anxiety disorder, unspecified; F32.A Depression, unspecified; F17.290 Nicotine dependence, other tobacco product, uncomplicated
CPT/HCPCS: 99284; 96374; 96361; 76801; 76817; 80053; 84702; 84703; 85018; 85025